=== PATIENT | male | born 1995 | race Caucasian/White ===

== ENCOUNTER 2020-10-18 00:44 | Emergency (ER) | payer OTHER, BC ==
[~2020-10-18] VITALS: Ht 187.9 cm; Wt 106.6 kg
== END 2020-10-18 04:03 | disposition home or self-care (01) ==
LOC: ED 00:44
DX: S16.1XXA Strain of muscle, fascia and tendon at neck level, initial encounter (principal); I10 Essential (primary) hypertension; F17.200 Nicotine dependence, unspecified, uncomplicated; V89.2XXA Person injured in unspecified motor-vehicle accident, traffic, initial encounter; Y93.89 Activity, other specified; Y92.89 Other specified places as the place of occurrence of the external cause; Y99.8 Other external cause status